=== PATIENT | female | born 1990 | race African-American/Black ===

== ENCOUNTER → 2023-12-09 08:20 | Outpatient (CLI) | payer OTHER | END | disposition home or self-care (01) | LOC: PRENATAL 08:20 | PROVIDERS: ATTEND Obstetrics & Gynecology Maternal & Fetal Medicine | DX: O26.849 Uterine size-date discrepancy, unspecified trimester (principal); O28.3 Abnormal ultrasonic finding on antenatal screening of mother; Z3A.28 28 weeks gestation of pregnancy ==

== ENCOUNTER → 2024-01-18 14:48 | Outpatient (CLI) | payer OTHER | END | disposition home or self-care (01) | LOC: PRENATAL 14:48 | PROVIDERS: ATTEND Obstetrics & Gynecology Maternal & Fetal Medicine | DX: O26.843 Uterine size-date discrepancy, third trimester (principal); O36.8130 Decreased fetal movements, third trimester, not applicable or unspecified; O99.013 Anemia complicating pregnancy, third trimester; Z3A.34 34 weeks gestation of pregnancy ==